=== PATIENT | female | born 1985 | race Caucasian/White ===

== ENCOUNTER 2018-01-21 14:42 | Emergency (ER) | payer MEDICAID ==
[2018-01-21 14:43] VITALS: BMI 34.2
[2018-01-21 14:56] VITALS: RESP 16
--- NOTE | 2018-01-21 15:26 | C.PDOC ---
Time Seen by Provider: 01/21/18 14:57 Chief Complaint (Nursing): Lower Extremity Problem/Injury Past Medical History Vital Signs: Last Vital Signs Temp 98.1 F 01/21/18 14:52 Pulse 89 01/21/18 14:52 Resp 16 01/21/18 14:52 BP 107/69 01/21/18 14:52 Pulse Ox 98 01/21/18 14:52 - Medical History PMH: Anemia, Asthma (not on any meds), Diabetes, Hypercholesterolemia (NOT TAKING MED.) Denies: Chronic Kidney Disease - [facility] Procedures FASCIOTOMY (04/12/15) PHYSICAL THERAPY NEC (07/02/15) Family History: States: Unknown Family Hx - Social History Hx Tobacco Use: No Hx Alcohol Use: Yes Hx Substance Use: No - Immunization History Hx Tetanus Toxoid Vaccination: No Hx Influenza Vaccination: Yes Hx Pneumococcal Vaccination: No ED Course And Treatment O2 Sat by Pulse Oximetry: 98 Disposition - Disposition
--- NOTE | 2018-01-21 15:40 | C.PDOC ---
History Of Present Illness 32 year old female presents to the ED c/o left ankle sprain that happened today. Patient reports he twisted his ankle, currently c/o pain and swelling to the side of her ankle. Patient is not able to beat any weight. Patient denies any other injury. L ANKLE SPRAIN TODAY. TWISTED, CO PAIN AND SWELLING SIDE OF ANKLE. NO OTHER INJURY. UNABLE TO WEIGHT BEAR EXAM NAD EXT LLE +SWELL L LAT MALL GEN TEND AROM W PAIN SKIN INTACT Time Seen by Provider: 01/21/18 14:57 Chief Complaint (Nursing): Lower Extremity Problem/Injury History Per: Patient History/Exam Limitations: no limitations Onset/Duration Of Symptoms: Hrs Current Symptoms Are (Timing): Still Present Recent travel outside of the [place]: No Additional History Per: Patient - Ankle/Foot Description Of Injury: Twisted Currently Unable To: Bear Weight Past Medical History Reviewed: Historical Data, Nursing Documentation, Vital Signs Vital Signs: Last Vital Signs Temp 98.1 F 01/21/18 14:52 Pulse 89 01/21/18 14:52 Resp 16 01/21/18 14:52 BP 107/69 01/21/18 14:52 Pulse Ox 98 01/21/18 15:41 - Medical History PMH: Anemia, Asthma (not on any meds), Diabetes, Hypercholesterolemia (NOT TAKING MED.) Denies: Chronic Kidney Disease Surgical History: No Surg Hx - [facility] Procedures FASCIOTOMY (04/12/15) PHYSICAL THERAPY NEC (07/02/15) Family History: States: Unknown Family Hx - Social History Hx Tobacco Use: No Hx Alcohol Use: Yes Hx Substance Use: No - Immunization History Hx Tetanus Toxoid Vaccination: No Hx Influenza Vaccination: Yes Hx Pneumococcal Vaccination: No Review Of Systems Constitutional: Negative for: Fever, Chills Cardiovascular: Negative for: Chest Pain Respiratory: Negative for: Shortness of Breath Gastrointestinal: Negative for: Abdominal Pain Musculoskeletal: Positive for: Foot Pain Skin: Negative for: Rash Physical Exam - Physical Exam Appears: Non-toxic, No Acute Distress Skin: Normal Color, Warm, Dry Head: Atraumatic, Normacephalic Eye(s): bilateral: Normal Inspection Chest: Symmetrical Cardiovascular: Rhythm Regular, No Murmur Respiratory: Normal Breath Sounds, No Rales, No Rhonchi, No Wheezing Extremity: Normal ROM, Tenderness (left ankle lateral malleolus), Capillary Refill (< 2 seconds), No Deformity, Swelling (left ankle lateral malleolus) Pulses: Left Dorsalis Pedis: Normal, Right Dorsalis Pedis: Normal Neurological/Psych: Oriented x3, Normal Motor, Normal Sensation Gait: Unsteady (due to pain) ED Course And Treatment O2 Sat by Pulse Oximetry: 98 (On RA) Pulse Ox Interpretation: Normal - Other Rad L ANKLE X-Ray: Interpreted by Me (NEG) L FOOT X-Ray: Interpreted by Me (NEG) Medical Decision Making Medical Decision Making: Impression: left ankle pain Plan: * Motrin 600 mg PO * Tylenol 65- mg PO * Left ankle X-Ray * Left foot X-Ray Disposition Counseled Patient/Family Regarding: Studies Performed, Diagnosis, Need For Followup, Rx Given - Disposition Referrals: [facility] [Outside] [facility] [Outside] Disposition: HOME/ ROUTINE Disposition Time: 15:41 Condition: IMPROVED Prescriptions: Ibuprofen [Motrin] 600 mg PO Q6 #30 tab Instructions: Ankle Sprain (DC) Forms: [employer] (Rw[place]an), Work Excuse - Clinical Impression Clinical Impression: Ankle sprain - Scribe Statement The provider has reviewed the documentation as recorded by the Scribe Bryan Butts All medical record entries made by the Scribe were at my direction and personally dictated by me. I have reviewed the chart and agree that the record accurately reflects my personal performance of the history, physical exam, medical decision making, and the department course for this patient. I have also personally directed, reviewed, and agree with the discharge instructions and disposition. Orthopedic Care Application Of:: Ankle Air Cast - Ambulation Aids Ambulation Aids: Adult Crutches
[2018-01-21 16:24] VITALS: BP 110/68; PULSE 84; TEMP 98.4; O2SAT 99
--- NOTE | 2018-01-21 16:48 | RAD ---
PROCEDURE: Left Ankle Radiographs. HISTORY: trauma COMPARISON: None FINDINGS: BONES: Normal. No fracture. JOINTS: Normal. No osteoarthritis. Ankle mortise maintained. Talar dome intact SOFT TISSUES: Normal. OTHER FINDINGS: None. IMPRESSION: Normal left ankle radiographs.
--- NOTE | 2018-01-21 16:49 | RAD ---
PROCEDURE: Left Foot Radiographs. HISTORY: trauma COMPARISON: None. FINDINGS: BONES: Normal. No fracture. JOINTS: Normal. SOFT TISSUES: Normal. OTHER FINDINGS: None. IMPRESSION: Normal left foot radiographs.
== END 2018-01-21 16:25 | disposition home or self-care (01) ==
LOC: C.ER 14:42
DX: S93.402A Sprain of unspecified ligament of left ankle, initial encounter (principal); X50.9XXA Other and unspecified overexertion or strenuous movements or postures, initial encounter

== ENCOUNTER 2018-04-20 05:49 | Day surgery (SDC) | payer MEDICAID ==
[2018-04-07 11:39] VITALS: BMI 36.5
[2018-04-20] MEDS ORDERED: Midazolam 2 MG/2 ML VIAL ONE ×2 (07:44→09:05)
[2018-04-20] MEDS ORDERED: Propofol 10 mg/ml Inj (20 ML) ONE ×2 (07:44→08:25)
[2018-04-20] MEDS ORDERED: Clindamycin 600mg/50ml NS 600 MG/50 ML BAG IVPB ONE (07:59)
[2018-04-20] MEDS: Lidocaine 2% MPF (5 ml) Inj ONE ×2 (08:10→08:55)
[2018-04-20] MEDS: Bupivacaine HCl 0.5% PF (30 ml) Inj ONE ×2 (08:10→08:54)
[2018-04-20] MEDS ORDERED: Bacitracin Ointment 30 GM TUBE ONE (09:43)
[2018-04-20] MEDS ORDERED: HYDROmorphone 0.5 mg/0.5 ml ISec IVP PRN (10:10)
--- NOTE | 2018-04-20 10:14 | PCM.SURG1 ---
Surgeon's Initial Post Op Note - Surgeon's Notes Surgeon: Dr. Crowell, DPM Itinerant Teacher Assistant: Dr. Shasta Sales DPM PGY-2; Dr. Katherine Thompson DPM PGY-2; Dr. Katherine Ortega DPM PGY-2 Type of Anesthesia: IV Sedation, Local Anesthesia Administered By: DAVID Lynch Pre-Operative Diagnosis: lateral ankle instability with rupture of anterior talofibular ligament left lower extremity Operative Findings: see op note Post-Operative Diagnosis: same Operation Performed: repair of lateral collateral ligaments with internal brace and brostrum repair left lower extremity Specimen/Specimens Removed: none Estimated Blood Loss: EBL {In ML}: 5 Blood Products Given: N/A Drains Used: No Drains Post-Op Condition: Good Date of Surgery/Procedure: 04/20/18 Time of Surgery/Procedure: 08:00
[2018-04-20] MEDS ORDERED: Oxycodone/Acetaminophen 5/325 mg Tab PO PRN ×2 (10:15)
[2018-04-20 12:04] VITALS: PULSE 88
[2018-04-20 15:08] VITALS: BP 102/66; RESP 20; TEMP 98.2; O2SAT 100
--- NOTE | 2018-04-26 08:58 | OP ---
PROCEDURE DATE: 04/20/2018 PREOPERATIVE DIAGNOSES: Lateral ankle instability with rupture of anterior talofibular ligament, right lower extremity. POSTOPERATIVE DIAGNOSES: Lateral ankle instability with rupture of anterior talofibular ligament, right lower extremity. PROCEDURE PERFORMED: Lateral ankle stabilization with Brostrom repair and internal brace. SURGEON: Enzo Joe DPM GENERATION ENGINEER: Priscila Sales DPM, PGY-3; Jack Thompson DPM, PGY-2; Jacky Ortega DPM, PGY-2. ANESTHESIOLOGIST: (DAVID Fermin). ANESTHESIA: MAC IV sedation with local injection. INDICATIONS: The patient is a 32-year-old female with the above-mentioned diagnoses. The patient is being treated by Dr. Joe in his office on an outpatient basis where she has exhausted multiple forms of conservative options at this time. The patient now seeks surgical intervention. All risks, benefits and possible complications of the proposed procedure have been explained to the patient at length. The patient verbalized understanding and wished to proceed. All questions were answered. No guarantees were given, nor implied. Consent was signed, and n.p.o. was confirmed prior to bringing the patient into the operating room. OPERATIVE PROCEDURE: The patient was brought in to the operating room and placed in the operating room table in a supine position. A well-padded pneumatic ankle tourniquet was applied in a high ankle position to the right lower extremity. Once IV sedation was achieved, local injection consisting of 20 mL of 0.25% Marcaine plain was introduced via local block fashion to the patient's right ankle. Once local anesthesia was achieved, the foot and ankle were then prepped and draped in the usual sterile manner and the procedure was begun. PROCEDURE #1: Brostrom repair of anterior talofibular ligament with internal brace of right lower extremity. Our attention was then directed to the lateral aspect of the patient's right ankle joint overlying where the anterior talofibular ligament was located. A liner incision was created overlying the distal fibula at the level of the lateral gutter of the ankle joint. The incision was carried through the subcutaneous tissue and care being taken to identify and retract all vital neurovascular structures. All bleeders were cauterized and ligated as necessary. Utilizing #15 blade, the capsular structures were incised in a vertical fashion overlying the roof of sinus tarsi. Once the capsular structures were incised, it was noted that the anterior talofibular ligament was completely ruptured at the distal portion, where it inserts onto the talus with a few fibers intact. At this time, ankle joint was inverted and the articular cartilage and lateral gutters were inspected for any osteochondral lesions, and none were appreciated. Next, a 1.8-mm drill was utilized to create a drill hole located 1 cm proximal to the anterior distal end of the fibula and a second hole was drilled using the same 1.8-mm drill bit located 2 cm proximal to the anterior distal end of the fibula. Next, a 2.1-mm Arthrex Mini SutureTak which was loaded with FiberTape was placed into each of the drill hole of the fibula with a mallet. The FiberTape was then set aside in the operative field to perform the modified Brostrom technique. Next, a 3.4-mm drill bit from the Arthrex InternalBrace kit was utilized to create a drill hole in the non-articulating surface of the talus but at approximately 45 degrees in order to prevent violation of the ankle joint. Then, a 4.75-mm tap was utilized to tap the drill hole into the talus. Next, our attention was then directed 1.5 cm proximal to the distal tip of the fibula. The 3.4-mm drill bit was then used to drill just across the proximal cortex of the fibula and the drill hole was then tapped with a 3.5-mm tap. Next, the 4.75-mm SwiveLock and anchors were inserted into the talar tunnel with a mallet to assist with proper placement and the FiberTape was then set aside. Next, our attention was returned to the two mini-SutureTak and a free needle was used to feed the remaining fibers of the anterior talofibular ligament and the capsular structures in [id number] suture fashion. While performing this technique, the foot was then placed in dorsiflexion and everted position as the sutures were tied down which allowed for reapproximation and tightening of the anterior talofibular ligament. The FiberTape and the InternalBrace were then fed through the eyelet of the 3.5 mm Arthrex SwiveLock and the anchor was inserted to the fibular tunnel with a mallet to assist with proper placement and fit into the fibula. To avoid over-tensioning, the hemostat was placed in between the FiberTape. Excess FiberTape was cut and removed from the operative field. The ankle was dressed in eversion and inversion, excellent stability achieved. The surgical site was next flushed with copious amounts of sterile normal saline solution. The deep subcutaneous tissue was reapproximated with 3-0 Vicryl. The subcuticular tissue was reapproximated with 4-0 Vicryl and the skin edges were reapproximated with 4-0 Prolene suture. The surgical site was then injected with an additional of 20 mL of 0.25% Marcaine plain to the lateral ankle. The incision site was then dressed with Adaptic, bacitracin, 4x4 gauze, Kerlix, Webril cast padding and a posterior splint with the ankle at neutral position was then applied to the right lower extremity. POSTOPERATIVE CONDITION: The patient tolerated the procedure and anesthesia well with no apparent complications or complaints. The patient was escorted from the OR to the recovery room with vital signs stable and neurovascular structures intact. The patient will be nonweightbearing in a posterior splint with crutches. The patient will follow up with Dr. Joe in the office within one week. Priscila Sales DPM Enzo Joe DPM
== END 2018-04-20 14:45 | disposition home or self-care (01) ==
LOC: C.SDS 05:49
PROVIDERS: ATTEND Podiatrist Foot & Ankle Surgery
DX: S93.402D Sprain of unspecified ligament of left ankle, subsequent encounter (principal); S93.492A Sprain of other ligament of left ankle, initial encounter
CPT/HCPCS: 27870; 97116; 97161; C1713; G8978; G8979; G8980; J2250; J2704; J3010

== ENCOUNTER 2018-05-12 18:56 | Emergency (ER) | payer MEDICAID ==
[2018-05-12 18:57] VITALS: BMI 36.5
[2018-05-12 19:17] VITALS: BP 105/66; PULSE 97; RESP 20; TEMP 98.6; O2SAT 97
--- NOTE | 2018-05-12 19:45 | C.PDOC ---
History Of Present Illness 32 year old female presents to the ED for evaluation of lower back pain which began 3 days ago. Patient suspects her pain may be caused by two factors. Patient states she recently underwent surgery to her left foot. She has been wearing an orthopedic boot and using crutches, and suspects that limping while walking has caused stress to her back. Additionally, patient states she recently tried opening a window and while pulling hard, she felt some pain in her back. Patient denies abdominal pain, urinary/bowel incontinence, extremity numbness/weakness, radiation of pain or direct trauma/injury to the area. Time Seen by Provider: 05/12/18 19:29 Chief Complaint (Nursing): Back Pain History Per: Patient History/Exam Limitations: no limitations Onset/Duration Of Symptoms: Days (3) Current Symptoms Are (Timing): Still Present Quality Of Discomfort: "Pain" Previous Symptoms: Back Pain Associated Symptoms: denies: Incontinence, New Weakness, New Numbness Additional History Per: Patient Past Medical History Reviewed: Historical Data, Nursing Documentation, Vital Signs Vital Signs: Last Vital Signs Temp 98.6 F 05/12/18 19:12 Pulse 97 H 05/12/18 19:12 Resp 20 05/12/18 19:12 BP 105/66 05/12/18 19:12 Pulse Ox 97 05/12/18 21:26 - Medical History PMH: Anemia, Asthma (not on any meds), Diabetes, Hypercholesterolemia (NOT TAKING MED.) Surgical History: No Surg Hx - [facility] Procedures FASCIOTOMY (04/12/15) PHYSICAL THERAPY NEC (07/02/15) Family History: States: Unknown Family Hx - Social History Hx Tobacco Use: No Hx Alcohol Use: Yes Hx Substance Use: No - Immunization History Hx Tetanus Toxoid Vaccination: No Hx Influenza Vaccination: Yes Hx Pneumococcal Vaccination: No Review Of Systems Gastrointestinal: Negative for: Abdominal Pain Genitourinary: Negative for: Incontinence Musculoskeletal: Positive for: Back Pain (lower ). Negative for: Leg Pain Neurological: Negative for: Weakness, Numbness Physical Exam - Physical Exam Appears: Non-toxic, No Acute Distress Skin: Normal Color, Warm, Dry Head: Atraumatic, Normacephalic Eye(s): bilateral: Normal Inspection Oral Mucosa: Moist Neck: Supple Chest: Symmetrical, No Deformity, No Tenderness Cardiovascular: Rhythm Regular, No Murmur Respiratory: Normal Breath Sounds, No Rales, No Rhonchi, No Wheezing Gastrointestinal/Abdominal: Soft, No Tenderness Back: Vertebral Tenderness (midline ), Paraspinal Tenderness (bilaterally ) Extremity: Normal ROM, No Tenderness, Capillary Refill (less than 2 seconds ), No Deformity, No Swelling Neurological/Psych: Oriented x3, Normal Speech, Normal Cognition Gait: Steady ED Course And Treatment O2 Sat by Pulse Oximetry: 97 (on RA) Pulse Ox Interpretation: Normal Progress Note: LS Spine AP/LAT XR ordered and reviewed. Lidoderm TD, Toradol IM , and Valium PO given. On re-exam, patient is resting comfortably and reports an improvement in her pain. Patient is ambulatory in the ED without distress and is stable for discharge. Patient is advised to f/u with her PMD within 1-2 days for further evaluation and/or return to the ED if symptoms persist or worsen. Disposition - Disposition Referrals: Kika Luz APN [Advanced Practice Nurse] - Disposition: HOME/ ROUTINE Disposition Time: 21:22 Condition: STABLE Additional Instructions: Follow up with your PMD within 1-2 days. Return to ED if feel worse. Prescriptions: Lidocaine 5% [Lidoderm] 1 patch TP DAILY #30 patch Methocarbamol [Robaxin] 750 mg PO QID #40 tab Instructions: Low Back Pain in Adults Forms: [facility] (Kyrgyz) - Clinical Impression Clinical Impression: Low back strain - PA / LEAD CASTER HELPER / Resident Statement MD/DO has reviewed & agrees with the documentation as recorded. - Scribe Statement The provider has reviewed the documentation as recorded by the Scribe (Daniela Lilly) All medical record entries made by the Scribe were at my direction and personally dictated by me. I have reviewed the chart and agree that the record accurately reflects my personal performance of the history, physical exam, medical decision making, and the department course for this patient. I have also personally directed, reviewed, and agree with the discharge instructions and disposition.
[2018-05-12] MEDS ORDERED: Lidocaine 5% Patch TD STA (20:04)
[2018-05-12] MEDS ORDERED: Lidocaine 5% Patch TD ONE (20:16)
--- NOTE | 2018-05-13 08:40 | RAD ---
Date of service: 05/12/2018 PROCEDURE: Radiographs of the Lumbar Spine. HISTORY: Back pain COMPARISON: No prior. FINDINGS: BONES: There is normal alignment of the lumbar vertebral bodies. There is normal lumbar lordosis. There is no acute fracture, spondylolysis or spondylolisthesis. Bone mineralization is normal. DISC SPACES: The disc heights are maintained. OTHER FINDINGS: No pathologic soft tissue calcifications. Both sacroiliac joints are normal. IMPRESSION: Normal examination.
== END 2018-05-12 21:46 | disposition home or self-care (01) ==
LOC: C.ER 18:56
DX: S39.012A Strain of muscle, fascia and tendon of lower back, initial encounter (principal); X58.XXXA Exposure to other specified factors, initial encounter; Y93.01 Activity, walking, marching and hiking; E78.00 Pure hypercholesterolemia, unspecified; E11.9 Type 2 diabetes mellitus without complications
CPT/HCPCS: 72100; 96372; 99283; J1885